=== PATIENT | male | born 1970 | race Caucasian/White ===

== ENCOUNTER → 2019-11-22 15:56 | Outpatient (BNVA) | payer MEDICAID, SELFPAY | PROVIDERS: Visit Provider Family Medicine | DX: E11.9 Type 2 diabetes mellitus without complications (principal); R32 Unspecified urinary incontinence; N48.1 Balanitis; F41.9 Anxiety disorder, unspecified; F10.10 Alcohol abuse, uncomplicated; F31.9 Bipolar disorder, unspecified; Z86.39 Personal history of other endocrine, nutritional and metabolic disease | CPT/HCPCS: 80053; 83036; 85025 ==

== ENCOUNTER 2020-01-21 22:19 | Emergency (ER) | payer MEDICAID, SELFPAY ==
[2020-01-21 22:22] VITALS: BMI 19.1
[2020-01-21 22:24] VITALS: BP 134/93; PULSE 100; RESP 22; TEMP 36.3; O2SAT 96
[2020-01-21 22:34] VITALS: PULSE 96
--- NOTE | 2020-01-21 22:35 | PC.NURSE ---
patient stated he was drinking tonight and was playing a game of stab through the fingers and lost . patient stabbed his finger with the knife. patient has lacerations to the fingers of the left hand, the 3rd, 4th, and 5th digits. patient states he doesn't need medical attention and only came because the police officers brought him.
--- NOTE | 2020-01-21 22:38 | ED_ITS ---
HPI - Extremity Problem General: Chief complaint: Extremity Injury, Upper Stated complaint: ETOH/HAND INJURY Time Seen by Provider: 01/21/20 22:21 Source: patient and EMS Mode of arrival: EMS Limitations: no limitations History of Present Illness: HPI Narrative: 49-year-old male who is been drinking alcohol tonight and is an alcoholic states he was playing the game where he stabbed a knife in between your fingers while holding her hand flat. He stabbed his left ring finger and has a small 1 cm laceration to that finger. Patient denies any other injuries. He has no suicidality or homicidality. He is unsure when his last tetanus was Associated symptoms: Deny chest pain, fever(s) or rash Review of Systems Const: Denies: fever, chills, body aches or change in appetite Eyes: Denies: blurry vision or eye discomfort ENMT: Denies: throat pain or dental pain Card: Denies: chest pain Resp: Denies: shortness of breath GI: Denies: abdominal pain, nausea, vomiting or diarrhea : Denies: painful urination Musc: Denies: neck pain or back pain Skin/Breast: Denies: rash Neuro: Denies: headache Psych: Denies: depression Abhinav/Lymph: Denies: easy bruising All/Imm: Denies: hives PFSH ED PFSH: Medical History Alcohol abuse Anxiety Bipolar 1 disorder History of diabetes mellitus, type II Social History Smoking and tobacco status: current every day smoker Alcohol intake: current Physical Exam 2 Const: COMMON NORMALS: no apparent distress, oriented x3 and healthy appearing OTHER: intoxicated HENMT: COMMON NORMALS: normocephalic and head/scalp atraumatic HEAD & SCALP: normocephalic and atraumatic Eye: COMMON NORMALS: PERRL and EOMs intact bilaterally PUPIL: Yes PERRL Neck/C-Spine: COMMON NORMALS: full ROM and supple Chest: COMMONS NORMALS: inspection of chest normal and palpation of chest norm al Resp: COMMON NORMALS: normal respiratory effort, no retractions, no use of accessory muscles and clear to auscultation bilaterally AUSCULTATION: clear to auscultation bilaterally Cardio: COMMON NORMALS: regular rate, regular rhythm and no murmurs RATE: regular rate RHYTHM: regular rhythm GI: COMMON NORMALS: normal to inspection, nondistended, normoactive bowel sounds, soft to palpation, non-tender and no masses PALPATION: Yes soft Extremity: COMMON NORMALS: normal to inspection and full ROM Neuro: COMMON NORMALS: oriented x3, moves all extremities and no focal motor deficits Psych: COMMON NORMALS: mental status grossly normal, thought process normal and cooperative THOUGHT PROCESS: normal thought process Skin: COMMON NORMALS: no rashes or lesions noted NARRATIVE SKIN EXAM: 1 cm superficial lesion to left ring finger with no tendon involvement GENERAL SKIN EXAM: no rashes or lesions noted Course Vital Signs: Vital signs: Vital Signs Temperature 97.4 F L 01/21/20 22:24 Pulse Rate 102 H 01/21/20 23:32 Respiratory Rate 18 01/21/20 23:32 Blood Pressure 106/69 01/21/20 23:32 Pulse Oximetry 97 01/21/20 23:32 MDM - Extremity (Nontraumatic) MDM Narrative: Medical decision making narrative: Patient presents with laceration to his finger. He refused any treatment and refused sutures or glue. Laceration was minimal. Patient is stable for discharge and is to follow-up with primary care doctor in 3 to 5 days and return if worsening. Discharge Plan Discharge Patient Disposition: Home, Self-Care Clinical Impression: Alcohol intoxication Qualifiers: Complication of substance-induced condition: uncomplicated Qualified Code(s): F10.920 - Alcohol use, unspecified with intoxication, uncomplicated Finger laceration Qualifiers: Encounter type: initial encounter Finger: ring finger Damage to nail status: without damage Foreign body presence: without foreign body Laterality: left Qualified Code(s): S61.215A - Laceration without foreign body of left ring finger without damage to nail, initial encounter Condition: Stable Prescriptions: No Action folic acid 1 mg tablet 1 mg PO DAILY RF: 0 acetaminophen 500 mg tablet 500 mg PO Q6H PRNRF: 0 gabapentin 300 mg capsule 800 mg PO TID RF: 0 insulin aspart U-100 [Novolog U-100 Insulin aspart] 100 unit/mL solution 15 unit SUBCUT TID Qty: 10 RF: 0 Lantus U-100 Insulin 100 unit/mL solution 100 unit SUBCUT DAILY Qty: 10 RF: 0 quetiapine 300 mg tablet 300 mg PO DAILY Qty: 30 RF: 1 thiamine HCl (vitamin B1) 100 mg tablet 100 mg PO DAILY Qty: 30 RF: 1 Discharge Orders: Discharge Order (Routine); Ordered 01/21/20 Ordered By: Fletcher Blanco Discharge Diet: Advance as tolerated Discharge Activity: Resume usual activity Patient Instructions: Laceration (ED), Abuse of Alcohol (ED) Discharge Date/Time: 01/21/20 23:25 Coding Level of Care Code ED Beam Dyer Recessed Vat for Sriram Fwd Exam Comprehensive
[2020-01-21] MEDS: tetanus-dipt-pertussis 0.5 mL SDV IM (23:25)
[2020-01-21 23:32] VITALS: BP 106/69; PULSE 102; RESP 18; O2SAT 97
== END 2020-01-21 23:25 | disposition home or self-care (01) ==
PROVIDERS: Emergency Provider Emergency Medicine
DX: S61.215A Laceration without foreign body of left ring finger without damage to nail, initial encounter (principal); F10.120 Alcohol abuse with intoxication, uncomplicated; Z79.4 Long term (current) use of insulin; E11.9 Type 2 diabetes mellitus without complications; F17.210 Nicotine dependence, cigarettes, uncomplicated; W26.0XXA Contact with knife, initial encounter; Z23 Encounter for immunization
CPT/HCPCS: 12345; 90471; 90715; 99281; 99283

== ENCOUNTER 2020-02-09 15:24 | Emergency (ER) | payer MEDICAID, SELFPAY ==
[2020-02-09 15:27] VITALS: BP 143/94; PULSE 81; RESP 16; TEMP 36.4; O2SAT 95; BMI 26.6
--- NOTE | 2020-02-09 15:42 | W.ED.PSYCH ---
HPI - Psych General: Chief Complaint: Psychiatric Symptoms Stated Complaint: ETOH; SI Time Seen by Provider: 02/09/20 15:26 Source: patient and EMS Mode of arrival: EMS Limitations: no limitations History of Present Illness: HPI Narrative: Patient is a 49-year-old male who is well-known to the ER he was very intoxicated and family called police because he stated that he wanted to kill himself. Patient denies any suicidality currently. He denies any suicidality to EMS. Patient states that he is just been drinking and does not like himself. Associated symptoms: Reports depression Review of Systems Const: Denies: fever(s), chills, body aches or change in appetite Eyes: Denies: blurry vision or eye discomfort ENMT: Denies: throat pain or dental pain Card: Denies: chest pain Resp: Denies: dyspnea GI: Denies: abdominal pain, nausea, vomiting or diarrhea : Denies: dysuria Musc: Denies: neck pain or back pain Skin/Breast: Denies: rash Neuro: Denies: headache(s) Psych: Reports: depression Abhinav/Lymph: Denies: easy bruising All/Imm: Denies: urticaria PFSH ED PFSH: Medical History (Updated 01/29/20 @ 00:00 by ) Alcohol abuse Anxiety Bipolar 1 disorder History of diabetes mellitus, type II Social History Smoking and tobacco status: current every day smoker Alcohol intake: current Physical Exam Const: COMMON NORMALS: no acute distress, patient oriented x3 and healthy appearing HENMT: COMMON NORMALS: normocephalic and atraumatic HEAD & SCALP: normocephalic and atraumatic Eye: COMMON NORMALS: Equal, round and reactive pupils present and EOMs intact bilaterally PUPIL: Yes Equal, round and reactive pupils present Neck/C-Spine: COMMON NORMALS: full ROM and supple Chest: COMMONS NORMALS: normal inspection of the chest and normal palpation of entire chest wall Resp: COMMON NORMALS: normal respiratory effort, No retractions, No use of accessory muscles and clear to auscultation bilaterally AUSCULTATION: clear to auscultation bilaterally Cardio: COMMON NORMALS: regular rate, regular rhythm and No murmurs present (Cardio) RATE: regular rate RHYTHM: regular rhythm GI: COMMON NORMALS: Normal to inspection, nondistended, normoactive bowel sounds present, Soft to palpation, non-tender and no masses PALPATION: Yes Soft to palpation Extremity: COMMON NORMALS: normal to inspection and full ROM Neuro: COMMON NORMALS: patient oriented x3, moves all extremities and no focal motor deficits Psych: COMMON NORMALS: mental status grossly normal, Normal thought process present and cooperative THOUGHT PROCESS: Normal thought process present OTHER: Very intoxicated Skin: COMMON NORMALS: no rashes or lesions noted and no wounds GENERAL SKIN EXAM: no rashes or lesions noted MDM - Psych MDM Narrative: Medical decision making narrative: Patient presents here with alcohol intoxication. There was concerns of suicidality patient was seen by Dr. Barrow patient is not suicidal or homicidal and Dr. Barrow feels that he does not need inpatient admission. Patient is now awake and alert and able to ambulate. Patient is stable for discharge and is to return if worsening. Lab Data: Labs: Lab Results 02/09/20 02/09/20 02/09/20 Range/Units 15:37 15:55 17:46 WBC 6.1 (4.0-10.0) 10^3/ uL RBC 4.72 (4.1-5.3) 10^6/u L Hgb 14.8 (11.7-16.6) g/dL Hct 46.2 (42.0-52.0) % MCV 97.9 H (80-94) fL MCH 31.4 (28.0-34.0) pg MCHC 32.0 (30.0-36.0) g/dL RDW 12.4 (12.1-15.1) % Plt Count 333 (130-400) 10^3/c mm MPV 9.5 (7.4-10.4) fL Neut % (Auto) 43.4 % Lymph % (Auto) 45.1 % Hinds % (Auto) 6.9 % Eos % (Auto) 2.1 % Baso % (Auto) 2.0 % Neut # (Auto) 2.6 (1.8-7.7) 10^3/u L Lymph # (Auto) 2.7 (0.8-4.8) 10^3/u L Hinds # (Auto) 0.4 (0.2-0.9) 10^3/u L Eos # (Auto) 0.1 (0.0-0.8) 10^3/u L Baso # (Auto) 0.1 (0.0-0.1) 10^3/u L Nucleated RBC % (a uto) 0 % Nucleated RBCs # 0.0 /100WBC Sodium 140 (136-145) mmol/L Potassium 4.3 (3.5-5.1) mmol/L Chloride 97 L (98-107) mmol/L Carbon Dioxide 21 L (22-29) mmol/L Anion Gap 26.3 H (5-19) BUN 8 (6-20) mg/dL Creatinine 0.6 L (0.7-1.2) mg/dL GFR Calculation 142.6 H (90-130) mL/min Glucose 293 H (65-115) mg/dL Calculated Osmolal ity 297 H (285-295) mOsm/k g Calcium 9.0 (8.5-10.5) mg/dL Total Bilirubin 0.2 (0.15-1.2) mg/dL AST 28 (0-40) U/L ALT 21 (0-41) U/L Alkaline Phosphata se 108 (40-130) IU/L Total Protein 7.9 (6.6-8.7) g/dL Albumin 4.4 (3.5-5.2) g/dL Globulin 3.5 (1.3-4.6) g/dL Salicylates < 0.3 L (3-10) mg/dL Urine Opiates Scre en Negative (Negative) ng/mL Acetaminophen < 5.0 L (10-30) ug/mL Ur Barbiturates Sc reen Negative (Negative) ng/mL Ur Phencyclidine S crn Negative (Negative) ng/mL Ur Amphetamines Sc reen Negative (Negative) ng/mL U Benzodiazepines Scrn Negative (Negative) ng/mL Urine Cocaine Scre en Negative (Negative) ng/mL U Marijuana (THC) Screen Negative (Negative) ng/mL Ethyl Alcohol 429 H* (0-10) mg/dL Discharge Plan Discharge Patient Disposition: Home, Self-Care Clinical Impression: Alcohol abuse Condition: Stable Prescriptions: No Action folic acid 1 mg tablet 1 mg PO DAILY RF: 0 acetaminophen 500 mg tablet 500 mg PO Q6H PRN (Reason: Pain) RF: 0 Lantus U-100 Insulin 100 unit/mL solution 100 unit SUBCUT DAILY 30 Days Qty: 10 RF: 1 insulin aspart U-100 [Novolog U-100 Insulin aspart] 100 unit/mL solution 15 unit SUBCUT TID 30 Days Qty: 13.5 RF: 1 quetiapine 300 mg tablet 300 mg PO DAILY Qty: 30 RF: 1 thiamine HCl (vitamin B1) 100 mg tablet 100 mg PO DAILY Qty: 30 RF: 1 gabapentin 300 mg capsule 600 mg PO TID 30 Days Qty: 90 RF: 1 Discharge Orders: Discharge Order (Routine); Ordered 02/09/20 Ordered By: Fletcher Blanco Discharge Diet: Advance as tolerated Discharge Activity: Resume usual activity Patient Instructions: Abuse of Alcohol (ED) Coding Level of Care Code ED Master Control Operator for Sriram Fwd Exam Comprehensive
[2020-02-09 15:43] LABS: Basophils # 0.1 10^3/uL (0.0-0.1); Eosinophils # 0.1 10^3/uL (0.0-0.8); Eosinophils % 2.1 %; Hematocrit 46.2 % (42.0-52.0); Hemoglobin 14.8 g/dL (11.7-16.6); Lymphocytes # 2.7 10^3/uL (0.8-4.8); Lymphocytes % 45.1 %; Mean Corpuscular Hemoglobin 31.4 pg (28.0-34.0); Mean Corpuscular Volume 97.9 fL (80-94); Mean Platelet Volume 9.5 fL (7.4-10.4); Monocytes # 0.4 10^3/uL (0.2-0.9); Monocytes % 6.9 %; Neutrophils # 2.6 10^3/uL (1.8-7.7); Neutrophils % 43.4 %; Nucleated Red Blood Cells % 0 %; Platelet Count 333 10^3/cmm (130-400); Red Blood Count 4.72 10^6/uL (4.1-5.3); Red Cell Distribution Width 12.4 % (12.1-15.1); White Blood Count 6.1 10^3/uL (4.0-10.0)
[2020-02-09 16:17] LABS: Alanine Aminotransferase 21 U/L (0-41); Albumin Level 4.4 g/dL (3.5-5.2); Alkaline Phosphatase 108 IU/L (40-130); Anion Gap 26.3 (5-19); Aspartate Amino Transferase 28 U/L (0-40); Blood Urea Nitrogen 8 mg/dL (6-20); Carbon Dioxide 21 mmol/L (22-29); Chloride 97 mmol/L (98-107); Globulin 3.5 g/dL (1.3-4.6); Glomerular Filtration Rate 142.6 mL/min (90-130); Glucose 293 mg/dL (65-115); Osmolality Calculated 297 mOsm/kg (285-295); Potassium 4.3 mmol/L (3.5-5.1); Sodium 140 mmol/L (136-145); Total Bilirubin 0.2 mg/dL (0.15-1.2); Total Protein 7.9 g/dL (6.6-8.7)
[2020-02-09 16:26] LABS: Acetaminophen < 5.0 ug/mL (10-30); Salicylate < 0.3 mg/dL (3-10)
[2020-02-09 16:27] LABS: Alcohol Level 429 mg/dL (0-10)
[2020-02-09 18:20] LABS: Amphetamines Screen Urine Negative (Negative); Barbiturates Screen Urine Negative (Negative); Benzodiazepines Screen Urine Negative (Negative); Cocaine Screen Urine Negative (Negative); Opiate Screen Urine Negative (Negative); PCP Screen Urine Negative (Negative); THC Screen Urine Negative (Negative)
[2020-02-09 18:49] VITALS: BP 130/77; PULSE 89; RESP 16; O2SAT 98
== END 2020-02-09 18:49 | disposition home or self-care (01) ==
PROVIDERS: Emergency Provider Emergency Medicine
DX: F10.10 Alcohol abuse, uncomplicated (principal); Y90.8 Blood alcohol level of 240 mg/100 ml or more; Z79.4 Long term (current) use of insulin; E11.9 Type 2 diabetes mellitus without complications; F17.210 Nicotine dependence, cigarettes, uncomplicated
CPT/HCPCS: 12345; 36415; 80053; 80306; 80307; 85025; 99284

== ENCOUNTER 2021-01-07 09:14 | Emergency (ER) | payer MEDICAID, SELFPAY ==
[2021-01-07 09:15] VITALS: BP 136/81; PULSE 104; RESP 18; TEMP 36.8; O2SAT 97; BMI 38.9
--- NOTE | 2021-01-07 09:39 | ED_ITS ---
HPI - Wound/Laceration General: Chief Complaint: Wound/Laceration Stated Complaint: left foot wound Time Seen by Provider: 01/07/21 09:37 History of Present Illness: HPI narrative: Patient is a 50-year-old male comes to the ED with a wound on left foot. Patient has a past medical history of diabetes type 2. Patient says he has a wound on the heel of his left foot and left great toe. He reports that he saw the [facility] approximately 2 weeks ago and they told him to put Vaseline on his wounds. Wound started approximately 3 to 4 weeks ago. He says since he saw [facility] they've gotten worse over the past 2 weeks. He says his wound on his heel is the most painful especially when weightbearing. He says he doesn't really feel the wound on his great toe. He reports that they bleed daily. Patient does have a history of MRSA approximately 5 years ago. Denies any fever, chills, nausea/vomiting or any other symptoms. Associated symptoms: Denies chills, fever(s), nausea or vomiting Review of Systems Const: Denies: fever(s), chills or fatigue Eyes: Denies: change in vision or eye discomfort ENMT: Denies: throat pain, odynophagia, nasal discharge or nasal congestion Card: Denies: chest pain, palpitations, edema, swelling of feet/ankles, dyspnea on exertion or orthopnea Resp: Denies: dyspnea, productive cough or non-productive cough GI: Denies: abdominal pain, nausea, vomiting, diarrhea, constipation or hematochezia : Denies: flank pain, difficulty urinating, dysuria or hematuria Musc: Denies: neck pain, back pain or extremity swelling Skin/Breast: Reports: new lesions (Wound on left foot heel and left great toe .); Denies: rash Neuro: Denies: headache(s), numbness in extremities or weakness in extremities PFSH ED PFSH: Medical History Alcohol abuse Anxiety Bipolar 1 disorder History of diabetes mellitus, type II Social History Smoking and tobacco status: current every day smoker Alcohol intake: current Physical Exam Const: COMMON NORMALS: no acute distress, patient oriented x3 and alert GENERAL APPEARANCE: cooperative and comfortable HENMT: COMMON NORMALS: normocephalic HEAD & SCALP: normocephalic MOUTH: Normal oral and palatal mucosa present THROAT: posterior oropharynx normal and uvula midline Neck/C-Spine: COMMON NORMALS: supple GENERAL: Yes normal visual inspection Resp: COMMON NORMALS: normal respiratory effort, No retractions, No use of accessory muscles and clear to auscultation bilaterally AUSCULTATION: clear to auscultation bilaterally Cardio: COMMON NORMALS: regular rate, regular rhythm, S1 normal heart sound present, S2 normal heart sound present, No gallops present (Cardio), No clicks present (Cardio), No murmurs present (Cardio) and Peripheral pulses 2+ throughout RATE: regular rate RHYTHM: regular rhythm HEART SOUNDS: S1 normal heart sound present and S2 normal heart sound present PERIPHERAL PULSES: Peripheral pulses 2+ throughout GI: COMMON NORMALS: Normal to inspection, nondistended, normoactive bowel sounds present, Soft to palpation, non-tender and no masses PALPATION: Yes Soft to palpation : COMMON NORMALS: Yes no CVA tenderness BLADDER/KIDNEY EXAM: Yes no CVA tenderness Back/Pelvis: COMMON NORMALS: no CVA tenderness Extremity: NARRATIVE EXTREMITY EXAM: Patient has a pressure ulcer on distal aspect of left great toe and there is some necrotic appearing superficial skin tissue. Toe has erythema and warmth which is suggestive of some cellulitis setting in. Patient also has a pressure ulcer on the heel. No surrounding erythema or warmth and no purulent drainage seen. GENERAL: Yes normal exam except as noted Neuro: COMMON NORMALS: patient oriented x3 and moves all extremities SENSORIUM/ORIENTATION: Yes alert Skin: NARRATIVE SKIN EXAM: Diabetic right foot ulcers described in Extremity section of exam. GENERAL SKIN EXAM: dry skin Course Vital Signs: Vital signs: Vital Signs Temperature 98.2 F 01/07/21 09:15 Pulse Rate 78 01/07/21 10:25 Respiratory Rate 18 01/07/21 10:25 Blood Pressure 153/88 01/07/21 12:19 Pulse Oximetry 99 01/07/21 12:19 MDM - Wound/Laceration MDM Narrative: Medical decision making narrative: Patient is a 50-year-old male comes to the ED with right foot diabetic ulcers. Patient has 1 ulcer on the distal aspect of great toe and the other ulcers on the heel. Past medical history of diabetes and MRSA. CBC and CMP were unremarkable. ESR 31 and CRP 3.6. X-ray of right foot shows no signs of bone destruction and just noted of soft tissue edema and ulceration of the great toe. Patient was given IV fluids and vancomycin while here in the ED. I placed an order with case management for patient to be referred to wound care clinic to manage ulcers. Patient was diagnosed with diabetic ulcer left great toe with cellulitis developing as well. Patient was discharged home with a prescription for clindamycin. Return to ED precautions given. I told patient that case sealer will contact him in the next several days to set up an appointment with wound care clinic. Patient understood and agreed with plan. Lab Data: Attestation: I reviewed the patient's lab results. Labs: Lab Results 01/07/21 01/07/21 01/07/21 Range/Units 11:00 11:00 11:00 WBC 9.3 (4.0-10.0) 10^3/ uL RBC 4.14 (4.1-5.3) 10^6/u L Hgb 13.5 (11.7-16.6) g/dL Hct 41.7 L (42.0-52.0) % MCV 100.7 H (80-94) fL MCH 32.6 (28.0-34.0) pg MCHC 32.4 (30.0-36.0) g/dL RDW 12.9 (12.1-15.1) % Plt Count 291 (130-400) 10^3/c mm MPV 8.9 (7.4-10.4) fL Neut % (Auto) 60.7 % Lymph % (Auto) 24.2 % Stokes % (Auto) 8.9 % Eos % (Auto) 4.3 % Baso % (Auto) 1.0 % Neut # (Auto) 5.67 (1.8-7.7) 10^3/u L Lymph # (Auto) 2.3 (0.8-4.8) 10^3/u L Stokes # (Auto) 0.8 (0.2-0.9) 10^3/u L Eos # (Auto) 0.4 (0.0-0.8) 10^3/u L Baso # (Auto) 0.1 (0.0-0.1) 10^3/u L Nucleated RBC % (a uto) 0 % Nucleated RBCs # 0.0 /100WBC ESR 31 H (0-10) mm/hr Sodium 139 (136-145) mmol/L Potassium 3.6 (3.5-5.1) mmol/L Chloride 101 (98-107) mmol/L Carbon Dioxide 29 (22-29) mmol/L Anion Gap 12.6 (5-19) BUN 6 (6-20) mg/dL Creatinine 0.5 L (0.7-1.2) mg/dL GFR Calculation 175.3 H (90-130) mL/min Glucose 108 (65-115) mg/dL Calculated Osmolal ity 286 (285-295) mOsm/k g Calcium 8.0 L (8.5-10.5) mg/dL Total Bilirubin 0.2 (0.15-1.2) mg/dL AST 17 (0-40) U/L ALT 12 (0-41) U/L Alkaline Phosphata se 87 (40-130) IU/L C-Reactive Protein 3.6 (0.0-4.9) mg/L Total Protein 6.9 (6.6-8.7) g/dL Albumin 3.4 L (3.5-5.2) g/dL Globulin 3.5 (1.3-4.6) g/dL Imaging Data^: Xray Ortho: Attestation: I personally reviewed and interpreted this imaging study as follows: Radiologist's impression: [address] [address] XRay Report Signed Patient: Huan Kauffman Unit #: [id number] : 1970 Age/Sex: 50 / M ADM Date: 01/07/21 Loc: ER Room/Bed: Attending Dr: Ordering Provider/Ordering MD: Cain Rhodes Date of Service: 01/07/21 Procedure(s): XR foot LT min 3V* [id number] Accession Number(s): [id number] Report Number: [id number] WS: [id number] Exam: XR foot LT min 3V* [id number] Date/Time of Exam: 01/07/2021 9:53 AM Reason For Exam: ulcer on great toe No acute fracture or dislocation. No bone destruction noted. Soft tissue edema and ulceration of the great toe. No soft tissue gas noted. XR/XR foot LT min 3V* [id number] IMPRESSION: 1. Soft tissue edema and ulceration of the great toe. 2. No sign of fracture or bone destruction. Dictated By: Ron Izquierdo DO Signed By: Ron Izquierdo DO Signed Date/Time: 01/07/21 1031 DD/ 1030 Discharge Plan Discharge Patient Disposition: Home Clinical Impression: Diabetic ulcer of left great toe Cellulitis Qualifiers: Site of cellulitis: extremity Site of cellulitis of extremity: toe Laterality: left Qualified Code(s): L03.032 - Cellulitis of left toe Condition: Stable Prescriptions: New clindamycin HCl 150 mg capsule 300 mg PO QID 10 Days Qty: 80 RF: 0 No Action folic acid 1 mg tablet 1 mg PO DAILY RF: 0 acetaminophen 500 mg tablet 500 mg PO Q6H PRN (Reason: Pain) RF: 0 Lantus U-100 Insulin 100 unit/mL solution 100 unit SUBCUT DAILY 30 Days Qty: 10 RF: 1 insulin aspart U-100 [Novolog U-100 Insulin aspart] 100 unit/mL solution 15 unit SUBCUT TID 30 Days Qty: 13.5 RF: 1 quetiapine 300 mg tablet 300 mg PO DAILY Qty: 30 RF: 1 thiamine HCl (vitamin B1) 100 mg tablet 100 mg PO DAILY Qty: 30 RF: 1 gabapentin 300 mg capsule 600 mg PO TID 30 Days Qty: 90 RF: 1 Discharge Orders: Discharge ED (Routine); Ordered 01/07/21 Ordered By: Cain Rhodes Discharge Diet: Regular Discharge Activity: Increase activity as tolerated Patient Instructions: Cellulitis (ED), Diabetic Foot Ulcers (ED) Activity Restrictions/Additional Instructions: Follow-up with medical provider as directed. Case management will be contacting you in the next several days to set up an appointment with wound care clinic. Take medications as prescribed. Make sure to follow-up with wound care as instructed. Return to the ER or your medical provider if condition worsens. Please read and understand discharge instructions. If any questions, please ask. Coding Level of Care Code ED Rigging Loft Repairer for Sriram Fwd Exam Comprehensive
--- NOTE | 2021-01-07 09:49 | XR_ITS ---
WS: [id number] Exam: XR foot LT min 3V* [id number] Date/Time of Exam: 01/07/2021 9:53 AM Reason For Exam: ulcer on great toe No acute fracture or dislocation. No bone destruction noted. Soft tissue edema and ulceration of the great toe. No soft tissue gas noted. XR/XR foot LT min 3V* [id number] IMPRESSION: 1. Soft tissue edema and ulceration of the great toe. 2. No sign of fracture or bone destruction.
[2021-01-07] MEDS: sodium chloride 0.9% 500 ML IV (10:22)
[2021-01-07] MEDS: vancomycin 1,500 MG/300 ML PIGGYBACK 200 MG IV (10:22)
[2021-01-07 10:25] VITALS: BP 156/98; PULSE 78; RESP 18; O2SAT 98
[2021-01-07 11:21] LABS: Basophils # 0.1 10^3/uL (0.0-0.1); Eosinophils # 0.4 10^3/uL (0.0-0.8); Eosinophils % 4.3 %; Hematocrit 41.7 % (42.0-52.0); Hemoglobin 13.5 g/dL (11.7-16.6); Lymphocytes # 2.3 10^3/uL (0.8-4.8); Lymphocytes % 24.2 %; Mean Corpuscular HGB Conc 32.4 g/dL (30.0-36.0); Mean Corpuscular Hemoglobin 32.6 pg (28.0-34.0); Mean Corpuscular Volume 100.7 fL (80-94); Mean Platelet Volume 8.9 fL (7.4-10.4); Monocytes # 0.8 10^3/uL (0.2-0.9); Monocytes % 8.9 %; Neutrophils # 5.67 10^3/uL (1.8-7.7); Neutrophils % 60.7 %; Nucleated Red Blood Cells % 0 %; Platelet Count 291 10^3/cmm (130-400); Red Blood Count 4.14 10^6/uL (4.1-5.3); Red Cell Distribution Width 12.9 % (12.1-15.1); White Blood Count 9.3 10^3/uL (4.0-10.0)
[2021-01-07 11:40] LABS: Alanine Aminotransferase 12 U/L (0-41); Albumin Level 3.4 g/dL (3.5-5.2); Alkaline Phosphatase 87 IU/L (40-130); Anion Gap 12.6 (5-19); Aspartate Amino Transferase 17 U/L (0-40); Blood Urea Nitrogen 6 mg/dL (6-20); C Reactive Protein 3.6 mg/L (0.0-4.9); Carbon Dioxide 29 mmol/L (22-29); Chloride 101 mmol/L (98-107); Globulin 3.5 g/dL (1.3-4.6); Glomerular Filtration Rate 175.3 mL/min (90-130); Glucose 108 mg/dL (65-115); Osmolality Calculated 286 mOsm/kg (285-295); Potassium 3.6 mmol/L (3.5-5.1); Sodium 139 mmol/L (136-145); Total Bilirubin 0.2 mg/dL (0.15-1.2); Total Protein 6.9 g/dL (6.6-8.7)
[2021-01-07 12:00] VITALS: BP 153/88; O2SAT 99
[2021-01-07 12:19] VITALS: BP 153/88; O2SAT 99
[2021-01-07 12:31] LABS: Erythrocyte Sedimentation Rate 31 mm/hr (0-10)
--- NOTE | 2021-01-11 13:45 | DCPLANNER ---
Addendum entered by Shweta Garnett 01/12/21 10:03: event operations manager called and spoke with patient, gave patient follow up appointment information. Addendum entered by Shweta Garnett 01/11/21 13:59: Patients niece called medical case worker back, stated that patient does not live with her. She did give medical case worker a new number to try and reach patient on, , medical case worker called this number unable to speak with anyone at this time, a voicemail was left for patient to return case picker phone call. Original Note: event operations manager had message to schedule a follow up appointment with Wound Care. event operations manager called the Wound Care clinic, spoke with Britta, gave clinic patients information. A follow up appointment was scheduled for , January 14, 2021 a 8:30 with Lucinda. event operations manager called phone number [phone], was cussed at and stated that they wished we would not call that number, no one by that name lived there and then was hung up on. event operations manager had that number taken out of patients chart. event operations manager then called [phone], unable to speak with anyone at this time a voicemail was left for patient to return case picker phone call.
--- NOTE | 2021-03-29 08:17 | DCPLANNER ---
Patient had a follow up appointment scheduled with Wound Care - patient did attend appointment.
== END 2021-01-07 12:20 | disposition home or self-care (01) ==
PROVIDERS: Emergency Provider Physician Assistant
DX: E11.621 Type 2 diabetes mellitus with foot ulcer (principal); L97.529 Non-pressure chronic ulcer of other part of left foot with unspecified severity; L03.032 Cellulitis of left toe; Z79.4 Long term (current) use of insulin; F17.210 Nicotine dependence, cigarettes, uncomplicated
CPT/HCPCS: 36415; 73630; 80053; 85025; 85651; 86140; 87040; 96365; 99283; J3370; J7040

== ENCOUNTER 2021-01-21 09:52 | Outpatient (CLI) | payer MEDICAID, SELFPAY | END 2021-01-21 09:53 | disposition home or self-care (01) | LOC: WOUND 09:53 | PROVIDERS: Visit Provider Nurse Practitioner Family | DX: E11.621 Type 2 diabetes mellitus with foot ulcer (principal); L97.529 Non-pressure chronic ulcer of other part of left foot with unspecified severity; L97.519 Non-pressure chronic ulcer of other part of right foot with unspecified severity; L97.422 Non-pressure chronic ulcer of left heel and midfoot with fat layer exposed | CPT/HCPCS: 11042; G0463 ==

== ENCOUNTER 2021-01-29 09:30 | Outpatient (CLI) | payer MEDICAID, SELFPAY | END 2021-01-29 09:31 | disposition home or self-care (01) | LOC: WOUND 09:31 | PROVIDERS: Visit Provider Thoracic Surgery (Cardiothoracic Vascular Surgery) | DX: E11.621 Type 2 diabetes mellitus with foot ulcer (principal); L97.511 Non-pressure chronic ulcer of other part of right foot limited to breakdown of skin; L97.421 Non-pressure chronic ulcer of left heel and midfoot limited to breakdown of skin | CPT/HCPCS: 97597; 99212 ==

== ENCOUNTER 2021-02-18 09:08 | Outpatient (CLI) | payer MEDICAID, SELFPAY | END 2021-02-18 09:09 | disposition home or self-care (01) | LOC: WOUND 09:09 | PROVIDERS: Visit Provider Nurse Practitioner Family | DX: E11.621 Type 2 diabetes mellitus with foot ulcer (principal); L97.521 Non-pressure chronic ulcer of other part of left foot limited to breakdown of skin | CPT/HCPCS: 11042 ==

== ENCOUNTER 2021-02-25 08:59 | Outpatient (CLI) | payer MEDICAID, SELFPAY | END 2021-02-25 09:00 | disposition home or self-care (01) | LOC: WOUND 09:01 | PROVIDERS: Visit Provider Nurse Practitioner Family | DX: E11.621 Type 2 diabetes mellitus with foot ulcer (principal); L97.521 Non-pressure chronic ulcer of other part of left foot limited to breakdown of skin | CPT/HCPCS: 11042 ==

== ENCOUNTER 2021-03-13 22:17 | Emergency (ER) | payer MEDICAID, SELFPAY ==
[2021-03-13 22:38] VITALS: BP 126/82; PULSE 98; RESP 17; TEMP 36.4; O2SAT 99; BMI 34.9
--- NOTE | 2021-03-13 22:55 | CTR_ITS ---
PROCEDURE INFORMATION: Exam: CT Neck With Contrast Exam date and time: 03/13/2021 10:55 PM Age: 50 years old Clinical indication: Dysphagia / difficulty swallowing and dyspnea / difficulty breathing; Patient HX: C/O throat pain, difficulty swallowing and breathing; Additional info: SOB, stridor TECHNIQUE: Imaging protocol: Computed tomography images of the neck with contrast. Radiation optimization: All CT scans at this facility use at least one of these dose optimization techniques: automated exposure control; mA and/or kV adjustment per patient size (includes targeted exams where dose is matched to clinical indication); or iterative reconstruction. Contrast material: OMNI 300; Contrast volume: 95 ml; Contrast route: INTRAVENOUS (IV); COMPARISON: CR (CHEST, ) 03/13/2021 10:59 PM RADIATION DOSE METRICS: Total DLP (mGy-cm): 521.53 FINDINGS: Nasopharynx: Unremarkable. Oropharynx: Unremarkable. No significant tonsillar enlargement. Hypopharynx: Unremarkable. Larynx: Unremarkable. Normal epiglottis. Retropharyngeal space: Unremarkable. Submandibular/Parotid glands: Normal. Glands are normal in size. Thyroid: Normal. No enlarged or calcified nodules. Lymph nodes: There are visualized but nonenlarged bilateral cervical lymph nodes. Trachea: Visualized trachea is unremarkable. Lungs: Unremarkable as visualized. Bones/joints: Unremarkable. No acute fracture. Soft tissues: Unremarkable. No significant soft tissue swelling. Other findings: Airway is widely patent. CT/CT neck w con* [id number] IMPRESSION: 1. Airway is widely patent. 2. No cause for shortness of breath or dysphagia is identified. Radiation Dose CTDIVOL = (mGy): DLP = 521.53 (mGy-cm)
--- NOTE | 2021-03-13 22:55 | XRR_ITS ---
PROCEDURE INFORMATION: Exam: XR Chest Exam date and time: 03/13/2021 10:55 PM Age: 50 years old Clinical indication: Dyspnea; Additional info: SOB TECHNIQUE: Imaging protocol: XR of the chest. Views: 1 view. COMPARISON: CR Chest 1 [place] [id number] 01/01/2019 5:14 PM FINDINGS: Lungs: Unremarkable. No consolidation. Pleural spaces: Unremarkable. No pleural effusion. No pneumothorax. Heart/Mediastinum: Unremarkable. No cardiomegaly. Bones/joints: Unremarkable. XR/XR chest 1V portable [id number] IMPRESSION: No acute disease.
--- NOTE | 2021-03-13 22:57 | ECG_ITS ---
[facility] Test Date: 2021-03-13 Pat Name: Huan Kauffman Department: Room: Gender: Male Claims Support Specialist: : 1970 Requested By: Arnold Barlow Order Number: [id number] Reading MD: JULIA STUART Measurements Intervals [place] Rate: 94 P: 71 TX: 166 QRS: 76 QRSD: 92 T: 86 QT: 356 QTc: 445 Interpretive Statements SINUS RHYTHM Compared to ECG 01/01/2019 17:09:33 No significant changes Electronically Signed On 03-15-2021 18:51:04 CDT by JULIA STUART [id number]
[2021-03-13] MEDS: ondansetron 2 mg/ML SDV 2 mL 4 MG IVP (23:21)
[2021-03-13] MEDS: sodium chloride 0.9% 1,000 ML 999 ML IV (23:21)
[2021-03-13] MEDS: dexamethasone 4 mg/mL INJ 6 MG IVP (23:25)
[2021-03-13 23:26] VITALS: RESP 17; O2SAT 99
[2021-03-13] MEDS: morphine 4 mg/mL SDV 1 mL IVP (23:26)
[2021-03-13 23:34] LABS: Add Urine Microscopic? NO; Charge for UA Resulting for Rev
[2021-03-13] MEDS: iohexol 300 mg/mL 100 mL Btl IV (23:36)
--- NOTE | 2021-03-13 23:40 | W.ED.SOB ---
HPI - SOB/Dyspnea General: Chief Complaint: Shortness of Breath/Dyspnea Stated Complaint: SOB Time Seen by Provider: 03/13/21 22:35 History of Present Illness: HPI Narrative: 50-year-old male presents to the ER with multiple complaints. He states that his main complaint is that of throat pain and trouble swallowing with trouble breathing. This is been progressively worsening for months he says. He says that he drinks alcohol to self medicate, and has been vomiting because of his throat. He is coughing. He denies any fever. He appears to be intoxicated. MD elicited complaint: shortness of breath and cough Pertinent past history: diabetes and other Onset (ago): month(s) Context: elevated blood glucose Timing: progressively worsening Severity: moderate Exacerbating factors: exertion, coughing and inspiration Relieving factors: nothing Known history of: diabetes and other Associated symptoms: Reports dizziness, nausea and vomiting; Deny abdominal pain, chest pain, fever(s) or hemoptysis Treatment prior to arrival: none Review of Systems Const: Denies: fever(s) Card: Denies: chest pain Resp: Denies: hemoptysis GI: Reports: nausea and vomiting; Denies: abdominal pain Neuro: Reports: dizziness PFSH ED PFSH: Medical History (Updated 03/14/21 @ 02:08 by Arnold Maloney DO) Alcohol abuse Anxiety Bipolar 1 disorder History of diabetes mellitus, type II Social History Smoking and tobacco status: current every day smoker Alcohol intake: current Physical Exam Const: GENERAL APPEARANCE: disheveled, appears older than stated age and odor of alcohol detected ORIENTATION/CONSCIOUSNESS: Yes awake, Yes oriented to person and Yes oriented to place HENMT: COMMON NORMALS: normocephalic, atraumatic and Normal external nose present HEAD & SCALP: normocephalic and atraumatic FACE & SINUS: normal facial exam NOSE: Normal external nose present and Normal nares present MOUTH: Normal oral and palatal mucosa present and tongue normal THROAT: posterior oropharynx abnormal edema and erythema; uvula not laterally displaced Chest: COMMONS NORMALS: normal inspection of the chest Resp: COMMON NORMALS: normal respiratory effort, No use of accessory muscles and clear to auscultation bilaterally AUSCULTATION: clear to auscultation bilaterally and other (Minimal stridor on forced inspiration) Cardio: COMMON NORMALS: regular rate and regular rhythm RATE: regular rate RHYTHM: regular rhythm GI: COMMON NORMALS: Normal to inspection, nondistended, normoactive bowel sounds present and Soft to palpation PALPATION: Yes Soft to palpation Neuro: SENSORIUM/ORIENTATION: Yes oriented to person and Yes oriented to place Course Vital Signs: Vital signs: Vital Signs Temperature 97.6 F 03/13/21 22:38 Pulse Rate 71 03/14/21 04:00 Respiratory Rate 17 03/14/21 04:00 Blood Pressure 162/111 03/14/21 01:52 Pulse Oximetry 96 03/14/21 04:00 MDM - SOB/Dyspnea MDM Narrative: Medical decision making narrative: 50-year-old male with multiple complaints. His main complaint is that of throat pain. He is sure that he has throat cancer. His white blood cell count is mildly elevated at 12.8. His bicarbonate level is low. His alcohol level is elevated at 99. His sodium is low at 125, but this is pseudohyponatremia, as his blood sugar is nearly 400. He is not acidotic. CT soft tissue of the neck does not reveal any mass, or definite infection or abscess. There is inflammation of his posterior pharynx on exam. He will be treated for this. This could be related to alcohol. His chest x-ray is negative. Results were explained to him. Case management referral will be made for him a primary care physician Lab Data: Labs: Lab Results 03/13/21 03/13/21 03/13/21 Range/Units 23:20 23:20 23:20 WBC 12.8 H (4.0-10.0) 10^3/ uL RBC 5.08 (4.1-5.3) 10^6/u L Hgb 16.1 (11.7-16.6) g/dL Hct 45.8 (42.0-52.0) % MCV 90.2 (80-94) fL MCH 31.7 (28.0-34.0) pg MCHC 35.2 (30.0-36.0) g/dL RDW 11.1 L (12.1-15.1) % Plt Count 273 (130-400) 10^3/c mm MPV 10.7 H (7.4-10.4) fL Neut % (Auto) 65.7 % Lymph % (Auto) 23.0 % [facility] % (Auto) 8.8 % Eos % (Auto) 0.9 % Baso % (Auto) 0.7 % Neut # (Auto) 8.40 H (1.8-7.7) 10^3/u L Lymph # (Auto) 2.9 (0.8-4.8) 10^3/u L [facility] # (Auto) 1.1 H (0.2-0.9) 10^3/u L Eos # (Auto) 0.1 (0.0-0.8) 10^3/u L Baso # (Auto) 0.1 (0.0-0.1) 10^3/u L Nucleated RBC % (a uto) 0 % Nucleated RBCs # 0.0 /100WBC Specimen Type Sample Site ABG pH (7.35-7.45) ABG pCO2 (35-45) mmHg ABG pO2 (80.0-100.0) mmH g ABG HCO3 (22-26) mmol/L ABG Base Excess (-2.0-2.0) mmol/ L Fortino Test Hematocrit (42-52) % O2 Delivery Device O2 Liters/Min % Spring Layer ID Sodium 125 L (136-145) mmol/L Potassium 4.3 (3.5-5.1) mmol/L Chloride 90 L (98-107) mmol/L Carbon Dioxide 17 L (22-29) mmol/L Anion Gap 22.3 H (5-19) BUN 3 L (6-20) mg/dL Creatinine 0.6 L (0.7-1.2) mg/dL GFR Calculation 142.0 H (90-130) mL/min Glucose 398 H (65-115) mg/dL Calculated Osmolal ity 273 L (285-295) mOsm/k g Lactate 1.9 (0.5-2.2) mmol/L Calcium 9.2 (8.5-10.5) mg/dL Total Bilirubin 0.7 (0.15-1.2) mg/dL AST 23 (0-40) U/L ALT 23 (0-41) U/L Alkaline Phosphata se 79 (40-130) IU/L C-Reactive Protein 5.5 H (0.0-4.9) mg/L Total Protein 7.8 (6.6-8.7) g/dL Albumin 4.0 (3.5-5.2) g/dL Globulin 3.8 (1.3-4.6) g/dL Procalcitonin 0.09 (0-0.5) ng/mL Urine Color (Yellow) Urine Appearance (CLEAR) Urine pH (5-7) Ur Specific Gravit y (1.005-1.030) Urine Protein (Negative) Urine Glucose (UA) (Normal) Urine Ketones (Negative) Urine Blood (Negative) Urine Nitrate (Negative) Urine Bilirubin (Negative) Urine Urobilinogen (Negative) mg/dL Ur Leukocyte Maureen ase (Negative) Ethyl Alcohol 99 H (0-10) mg/dL 03/13/21 03/14/21 Range/Units 23:20 02:30 WBC (4.0-10.0) 10^3/ uL RBC (4.1-5.3) 10^6/u L Hgb (11.7-16.6) g/dL Hct (42.0-52.0) % MCV (80-94) fL MCH (28.0-34.0) pg MCHC (30.0-36.0) g/dL RDW (12.1-15.1) % Plt Count (130-400) 10^3/c mm MPV (7.4-10.4) fL Neut % (Auto) % Lymph % (Auto) % [facility] % (Auto) % Eos % (Auto) % Baso % (Auto) % Neut # (Auto) (1.8-7.7) 10^3/u L Lymph # (Auto) (0.8-4.8) 10^3/u L [facility] [place] # (Auto) (0.2-0.9) 10^3/u L Eos # (Auto) (0.0-0.8) 10^3/u L Baso # (Auto) (0.0-0.1) 10^3/u L Nucleated RBC % (a uto) % Nucleated RBCs # /100WBC Specimen Type Arterial Sample Site Radial, left ABG pH 7.43 (7.35-7.45) ABG pCO2 34.5 L (35-45) mmHg ABG pO2 86.9 (80.0-100.0) mmH g ABG HCO3 23.0 (22-26) mmol/L ABG Base Excess -0.6 (-2.0-2.0) mmol/ L Fortino Test Pos Hematocrit 50.6 (42-52) % O2 Delivery Device Nc O2 Liters/Min 1.0 % Spring Layer ID [email or web address] Sodium (136-145) mmol/L Potassium (3.5-5.1) mmol/L Chloride (98-107) mmol/L Carbon Dioxide (22-29) mmol/L Anion Gap (5-19) BUN (6-20) mg/dL Creatinine (0.7-1.2) mg/dL GFR Calculation (90-130) mL/min Glucose (65-115) mg/dL Calculated Osmolal ity (285-295) mOsm/k g Lactate (0.5-2.2) mmol/L Calcium (8.5-10.5) mg/dL Total Bilirubin (0.15-1.2) mg/dL AST (0-40) U/L ALT (0-41) U/L Alkaline Phosphata se (40-130) IU/L C-Reactive Protein (0.0-4.9) mg/L Total Protein (6.6-8.7) g/dL Albumin (3.5-5.2) g/dL Globulin (1.3-4.6) g/dL Procalcitonin (0-0.5) ng/mL Urine Color Yellow (Yellow) Urine Appearance Clear (CLEAR) Urine pH 5 (5-7) Ur Specific Gravit y 1.000 L (1.005-1.030) Urine Protein Neg (Negative) Urine Glucose (UA) 4+ H (Normal) Urine Ketones Negative (Negative) Urine Blood Neg (Negative) Urine Nitrate Negative (Negative) Urine Bilirubin Neg (Negative) Urine Urobilinogen Norm (Negative) mg/dL Ur Leukocyte Maureen ase Negative (Negative) Ethyl Alcohol (0-10) mg/dL Discharge Plan Discharge Patient Disposition: Home Clinical Impression: Pharyngitis Qualifiers: Pharyngitis/tonsillitis etiology: unspecified etiology Qualified Code(s): J02.9 - Acute pharyngitis, unspecified Condition: Stable Prescriptions: New amoxicillin 500 mg capsule 500 mg PO Q8H Qty: 30 RF: 0 Zofran 4 mg tablet 4 mg PO Q6H PRN (Reason: nausea and vomiting) Qty: 10 RF: 0 No Action folic acid 1 mg tablet 1 mg PO DAILY RF: 0 acetaminophen 500 mg tablet 500 mg PO Q6H PRN (Reason: Pain) RF: 0 Lantus U-100 Insulin 100 unit/mL solution 100 unit SUBCUT DAILY 30 Days Qty: 10 RF: 1 insulin aspart U-100 [Novolog U-100 Insulin aspart] 100 unit/mL solution 15 unit SUBCUT TID 30 Days Qty: 13.5 RF: 1 quetiapine 300 mg tablet 300 mg PO DAILY Qty: 30 RF: 1 thiamine HCl (vitamin B1) 100 mg tablet 100 mg PO DAILY Qty: 30 RF: 1 gabapentin 300 mg capsule 600 mg PO TID 30 Days Qty: 90 RF: 1 Discharge Orders: Discharge ED (Routine); Ordered 03/14/21 Ordered By: Arnold Maloney Patient Instructions: Pharyngitis (ED), Diabetic Hyperglycemia (ED) Coding Level of Care Code ED Sample Steamer for Chg Fwd Exam Detailed
[2021-03-13 23:49] LABS: Basophils # 0.1 10^3/uL (0.0-0.1); Basophils % 0.7 %; Eosinophils # 0.1 10^3/uL (0.0-0.8); Eosinophils % 0.9 %; Hematocrit 45.8 % (42.0-52.0); Hemoglobin 16.1 g/dL (11.7-16.6); Lymphocytes # 2.9 10^3/uL (0.8-4.8); Mean Corpuscular HGB Conc 35.2 g/dL (30.0-36.0); Mean Corpuscular Hemoglobin 31.7 pg (28.0-34.0); Mean Corpuscular Volume 90.2 fL (80-94); Mean Platelet Volume 10.7 fL (7.4-10.4); Monocytes # 1.1 10^3/uL (0.2-0.9); Monocytes % 8.8 %; Neutrophils % 65.7 %; Nucleated Red Blood Cells % 0 %; Platelet Count 273 10^3/cmm (130-400); Red Blood Count 5.08 10^6/uL (4.1-5.3); Red Cell Distribution Width 11.1 % (12.1-15.1); White Blood Count 12.8 10^3/uL (4.0-10.0)
[2021-03-13 23:56] LABS: Bilirubin Urine Neg (Negative); Blood Urine Neg (Negative); Glucose Urine UA 4+ (Normal); Ketones Urine Negative (Negative); Leukocyte Esterase Urine Negative (Negative); Nitrate Urine Negative (Negative); Protein Urine Neg (Negative); Urine Appearance Clear (CLEAR); Urine Color Yellow (Yellow); Urobilinogen Urine Norm (Negative); pH Urine 5 (5-7)
[2021-03-13 23:59] LABS: Lactate (Lactic Acid level) 1.9 mmol/L (0.5-2.2)
[2021-03-14 00:15] VITALS: BP 154/99; PULSE 96; RESP 16; O2SAT 95
[2021-03-14 00:39] LABS: Alanine Aminotransferase 23 U/L (0-41); Alcohol Level 99 mg/dL (0-10); Alkaline Phosphatase 79 IU/L (40-130); Blood Urea Nitrogen 3 mg/dL (6-20); C Reactive Protein 5.5 mg/L (0.0-4.9); Calcium 9.2 mg/dL (8.5-10.5); Carbon Dioxide 17 mmol/L (22-29); Chloride 90 mmol/L (98-107); Globulin 3.8 g/dL (1.3-4.6); Glucose 398 mg/dL (65-115); Osmolality Calculated 273 mOsm/kg (285-295); Procalcitonin 0.09 ng/mL (0-0.5); Sodium 125 mmol/L (136-145); Total Bilirubin 0.7 mg/dL (0.15-1.2); Total Protein 7.8 g/dL (6.6-8.7)
[2021-03-14 00:40] LABS: Anion Gap 22.3 (5-19); Aspartate Amino Transferase 23 U/L (0-40); Potassium 4.3 mmol/L (3.5-5.1)
[2021-03-14 01:52] VITALS: BP 162/111; PULSE 78; RESP 17; O2SAT 94
[2021-03-14 02:40] LABS: ABG PCO2 34.5 mmHg (35-45); ABG PH Result 7.43 (7.35-7.45); Arterial Blood Gas Hematocrit 50.6 % (42-52); Base Excess ABG -0.6 mmol/L (-2.0-2.0); Blood Gas Allen Test Pos; Blood Gas Sample Site Radial, left; Blood Gas Sample Type Arterial; Oxygen Device NC; PO2 ABG 86.9 mmHg (80.0-100.0)
[2021-03-14 04:00] VITALS: PULSE 71; RESP 17; O2SAT 96
[2021-03-14] MEDS: lidocaine 2% viscous 1.667 ML, diphenhydrAMINE oral liq 4.165 MG, aluminum-mag hydrox-s... MUCOUS MEM (04:34)
[2021-03-14 04:41] VITALS: BP 131/98; PULSE 117; RESP 17; TEMP 36.8; O2SAT 95
--- NOTE | 2021-03-17 11:36 | DCPLANNER ---
visual manager had message to speak with patient about getting established with a primary care physician. visual manager called phone number [phone], unable to speak with patient at this time, a voicemail was left for patient to return outpatient case manager phone call.
[2021-03-18 09:22] LABS: Quest SARS-CoV-2 RNA NOT DETECTED (NOT DETECTED)
== END 2021-03-14 04:45 | disposition home or self-care (01) ==
PROVIDERS: Emergency Provider Emergency Medicine
DX: J02.9 Acute pharyngitis, unspecified (principal); Z79.4 Long term (current) use of insulin; F17.210 Nicotine dependence, cigarettes, uncomplicated; Z20.822 Contact with and (suspected) exposure to COVID-19
CPT/HCPCS: 36600; 70491; 71045; 80053; 80307; 81003; 82803; 83605; 84145; 85025; 86140; 87635; 93005; 96361; 96374; 96375; 99284; J1100; J2270; J2405; J7030; Q9967

== ENCOUNTER → 2022-03-25 08:51 | Outpatient (BNVA) | payer MEDICAID, SELFPAY | PROVIDERS: Visit Provider Internal Medicine | DX: E11.40 Type 2 diabetes mellitus with diabetic neuropathy, unspecified (principal); E78.2 Mixed hyperlipidemia; R74.01 Elevation of levels of liver transaminase levels; Z72.89 Other problems related to lifestyle; Z79.84 Long term (current) use of oral hypoglycemic drugs; F17.200 Nicotine dependence, unspecified, uncomplicated | CPT/HCPCS: 99204 ==

== ENCOUNTER → 2022-04-11 08:24 | Outpatient (BNVA) | payer MEDICAID, SELFPAY | PROVIDERS: Visit Provider Internal Medicine | DX: E11.40 Type 2 diabetes mellitus with diabetic neuropathy, unspecified (principal); F17.200 Nicotine dependence, unspecified, uncomplicated; Z79.84 Long term (current) use of oral hypoglycemic drugs; Z79.4 Long term (current) use of insulin; E78.2 Mixed hyperlipidemia; R74.01 Elevation of levels of liver transaminase levels; Z72.89 Other problems related to lifestyle | CPT/HCPCS: 99214 ==

== ENCOUNTER 2022-07-12 09:55 | Outpatient (CLI) | payer MEDICAID, SELFPAY ==
--- NOTE | 2022-07-12 10:15 | XRR_ITS ---
PROCEDURE INFORMATION: Exam: XR Chest Exam date and time: 07/12/2022 10:16 AM Age: 51 years old Clinical indication: Patient HX: History--cough, chronic bronchitis TECHNIQUE: Imaging protocol: Radiologic exam of the chest. Views: 2 views. COMPARISON: CR XR chest 1V portable [id number] 03/13/2021 10:59 PM FINDINGS: Lungs: Unremarkable. No consolidation. Pleural spaces: Unremarkable. No pleural effusion. No pneumothorax. Heart/Mediastinum: Unremarkable. No cardiomegaly. Bones/joints: Unremarkable. XR/XR chest 2V* [id number] IMPRESSION: No acute findings.
== END 2022-07-12 09:56 | disposition home or self-care (01) ==
LOC: RAD 09:58
PROVIDERS: Visit Provider Nurse Practitioner Family
DX: R05.9 Cough, unspecified (principal)
CPT/HCPCS: 71046

== ENCOUNTER 2023-05-15 21:27 | Emergency (ER) | payer MEDICAID, SELFPAY ==
[2023-05-15 21:29] VITALS: BP 175/99; PULSE 65; RESP 16; TEMP 36.5; O2SAT 100; BMI 30.7
--- NOTE | 2023-05-15 21:29 | ECG_ITS ---
[facility] Test Date: 2023-05-15 Pat Name: Huan Kauffman Department: Room: Gender: Male Manager Financial Planning: : 1970 Requested By: Michael Vasques Order Number: [id number] Lucie MD: Sumeet Lee M.D. Measurements Intervals [place] Rate: 67 P: 79 [place]: 194 QRS: 62 QRSD: 95 T: 59 QT: 414 QTc: 440 Interpretive Statements SINUS RHYTHM SEPTAL MYOCARDIAL INFARCTION , OF INDETERMINATE AGE [40+ ms Q WAVE IN V1/V2] Compared to ECG 03/13/2021 23:51:29 Myocardial infarct finding now present Electronically Signed On 05-16-2023 12:05:46 CDT by Sumeet Lee M.D. [id number]
[2023-05-15 22:05] LABS: Amphetamines Screen Urine Negative (Negative); Barbiturates Screen Urine Negative (Negative); Benzodiazepines Screen Urine Negative (Negative); Cocaine Screen Urine Negative (Negative); Opiate Screen Urine Negative (Negative); PCP Screen Urine Negative (Negative); THC Screen Urine Negative (Negative)
--- NOTE | 2023-05-15 22:14 | ED_ITS ---
HPI - Dizziness General: Chief Complaint: Dizziness Stated Complaint: hypoglycemia Time Seen by Provider: 05/15/23 21:29 History of Present Illness: HPI Narrative: Patient presents to the ER by EMS with due to concerns of his kidney function. Patient felt dizzy at home and has been an alcoholic for many years which is why he is worried about his kidneys. Patient recently stopped drinking approximately 3 days ago. Patient said he drank 324 ounce beers a day along with a half of a half a gallon of carito. Patient is visibly jaundiced. Patient's belly is distended. Patient's sclera is jaundiced. Review of Systems General: Reports: 10 or more systems reviewed and unremarkable except in HPI and below PFSH ED PFSH: Medical History Alcohol abuse Anxiety Bipolar 1 disorder History of diabetes mellitus, type II Neuropathy Surgical History S/P BKA (below knee amputation) Family History Father Cancer Mother Cancer Social History Smoking and tobacco status: current every day smoker Quit status (tobacco): not considering quitting Second hand smoke exposure: No Smoking risk assessment/counseling performed?: Yes Alcohol intake: current Desire information about alcohol rehabilitation?: No Counseling given: No Substance/Drug Use: former Desire information about substance/drug rehabilitation?: No Counseling given: No Adopted: No Caregiver/support person: No Lives independently: Yes Household members: none Housing: Apartment Marital status: / Number of children: 1 Highest education level completed: 9th Grade service: No Current occupational status: disabled Physical Exam Const: COMMON NORMALS: no acute distress, average body habitus, patient oriented x3, no limitations, healthy appearing, alert and well nourished HENMT: COMMON NORMALS: normocephalic, atraumatic, hearing grossly normal bilaterally, Normal external nose present and moist oral mucous membranes HEAD & SCALP: normocephalic and atraumatic NOSE: Normal external nose present Eye: COMMON NORMALS: Equal, round and reactive pupils present, EOMs intact bilaterally and negative for no scleral icterus (Jaundice) PUPIL: Yes Equal, round and reactive pupils present Neck/C-Spine: COMMON NORMALS: full ROM, no lymphadenopathy, supple, no meningeal signs, no JVD and Thyroid normal THYROID: Thyroid normal Lymph: LYMPHATIC: no lymphadenopathy noted Chest: COMMONS NORMALS: normal inspection of the chest and normal palpation of entire chest wall Resp: COMMON NORMALS: normal respiratory effort, No retractions, No use of accessory muscles and clear to auscultation bilaterally AUSCULTATION: clear to auscultation bilaterally Cardio: COMMON NORMALS: no JVD, regular rate, regular rhythm, S1 normal heart sound present, S2 normal heart sound present, No gallops present (Cardio), No clicks present (Cardio), No murmurs present (Cardio) and No rub (Cardio) RATE: regular rate RHYTHM: regular rhythm HEART SOUNDS: S1 normal heart sound present and S2 normal heart sound present GI: COMMON NORMALS: negative for non-tender (Tender to palpate throughout positive hepatomegaly distended) : COMMON NORMALS: Yes no CVA tenderness BLADDER/KIDNEY EXAM: Yes no CVA tenderness Back/Pelvis: COMMON NORMALS: no CVA tenderness Neuro: COMMON NORMALS: patient oriented x3 SENSORIUM/ORIENTATION: Yes alert MENINGEAL SIGNS: Yes no meningeal signs Course Vital Signs: Vital signs: Vital Signs Temperature 97.7 F 05/15/23 21:29 Pulse Rate 96 05/16/23 00:37 Respiratory Rate 17 05/16/23 00:37 Blood Pressure 147/35 05/16/23 00:37 Pulse Oximetry 96 05/16/23 00:37 Oxygen Delivery Me thod Room Air 05/16/23 00:37 MDM - Dizziness Medical Decision Making Patient presents to the ER because he wanted his kidneys checked and he felt dizzy. Patient is a self-admitted alcoholic. Patient had lab work done at the ER which revealed a white count of 17,000 sodium of 127 BUN/creatinine of 7 and 0.3 showed a total bilirubin of 12.1 and AST of 205 ALT of 55 and an alkaline phosphatase of 421. Ammonia of 68 a C-reactive protein of 40.3 urine that possibly was showed signs of a mild urinary tract infection. Patient is CT with contrast of his chest abdomen pelvis which was negative for PE but did show prominent fluid in the small bowel suggesting of enteritis, right nonobstructing kidney stone, perinephric edema. All these findings was discussed in detail with the patient who was very happy that he had not hurt his kidneys. Patient w ill be given Rocephin IV here as well as discharged home on Augmentin for potential urinary tract infection. Patient should follow-up with his PCP for further evaluation and testing of his elevated liver enzymes patient should continue to not drink. Differential Diagnosis Unlikely adverse reaction to drug, benign paroxysmal positional vertigo, orthostatic hypotension, vertebral basilar insufficiency, cerebrovascular accident, acute vestibular neuronitis or transient cerebral ischemia Medical Records I reviewed the patient's medical records. Lab Data I reviewed the patient's lab results. 05/15/23 23:07 05/15/23 22:07 Radiology Impressions Chest/Abdomen/Pelvis CT 05/15/23 23:58 IMPRESSION: 1. Negative for pulmonary embolus. 2. Ascending thoracic aorta dilated 3.9 cm. 3. Cardiomegaly. 4. Scattered enlarged mediastinal lymph nodes measuring up to 15 mm, nonspecific. 5. Mild emphysematous changes suspected. IMPRESSION: 1. Prominent fluid in the small bowel without dilation suggestive of an enteritis. 2. Right kidney nonobstructing calyceal stone. 3. Perinephric edema bilaterally likely reflecting renal insufficiency, please correlate for pyelonephritis. 4. Hepatic steatosis. Laboratory Results WBC 17.08 10^3/uL (3.29-11.43) H 05/15/23 23:07 RBC 3.21 10^6/uL (3.85-5.65) L 05/15/23 23:07 Hgb 11.30 g/dL (11.27-16.99) 05/15/23 23:07 Hct 32.4 % (37-53) L 05/15/23 23:07 MCV 100.9 fl (82-101) 05/15/23 23:07 MCH 35.2 pg (27-33) H 05/15/23 23:07 MCHC 34.9 g/dL (30-55) 05/15/23 23:07 RDW 16.7 % (12.1-15.1) H 05/15/23 23:07 Plt Count 228 10^3/cmm (157-399) 05/15/23 23:07 MPV 10.4 fL (7.4-10.4) 05/15/23 23:07 Neut % (Auto) 74.6 % 05/15/23 23:07 Lymph % (Auto) 15.1 % 05/15/23 23:07 [place] % (Auto) 5.9 % 05/15/23 23:07 Eos % (Auto) 1.2 % 05/15/23 23:07 Baso % (Auto) 0.9 % 05/15/23 23:07 Neut # (Auto) 12.76 10^3/uL (1.8-7.7) H 05/15/23 23:07 Lymph # (Auto) 2.6 10^3/uL (0.8-4.8) 05/15/23 23:07 [place] # (Auto) 1.0 10^3/uL (0.2-0.9) H 05/15/23 23:07 Eos # (Auto) 0.2 10^3/uL (0.0-0.8) 05/15/23 23:07 Baso # (Auto) 0.2 10^3/uL (0.0-0.1) H 05/15/23 23:07 Nucleated RBC % (auto) 0.1 % 05/15/23 23:07 Nucleated RBCs # 0.0 /100WBC 05/15/23 23:07 Sodium 127 mmol/L (136-145) L 05/15/23 22:07 Potassium 3.5 mmol/L (3.5-5.1) 05/15/23 22:07 Chloride 91 mmol/L (98-107) L 05/15/23 22:07 Carbon Dioxide 27 mmol/L (22-29) 05/15/23 22:07 Anion Gap 12.5 (5-19) 05/15/23 22:07 BUN 7 mg/dL (6-20) 05/15/23 22:07 Creatinine 0.3 mg/dL (0.7-1.2) L 05/15/23 22:07 GFR Calculation 313.6 mL/min (90-130) H 05/15/23 22:07 Glucose 114 mg/dL (65-115) 05/15/23 22:07 Calculated Osmolality 263 mOsm/kg (285-295) L 05/15/23 22:07 Lactic Acid 1.8 mmol/L (0.5-2.2) 05/15/23 22:07 Calcium 8.1 mg/dL (8.5-10.5) L 05/15/23 22:07 Total Bilirubin 12.1 mg/dL (0.15-1.2) H* 05/15/23 22:07 AST 205 U/L (0-40) H 05/15/23 22:07 ALT 55 U/L (0-41) H 05/15/23 22:07 Alkaline Phosphatase 421 U/L (40-130) H 05/15/23 22:07 Ammonia 68 umol/L (16-60) H 05/15/23 22:07 C-Reactive Protein 40.3 mg/L (0.0-4.9) H 05/15/23 22:07 Total Protein 7.4 g/dL (6.6-8.7) 05/15/23 22:07 Albumin 2.5 g/dL (3.5-5.2) L 05/15/23 22:07 Globulin 4.9 g/dL (1.3-4.6) H 05/15/23 22:07 Procalcitonin 0.62 ng/mL (0-0.5) H 05/15/23 22:07 Urine Color Masha (Yellow) 05/15/23 21:47 Urine Appearance Clear (CLEAR) 05/15/23 21:47 Urine pH 8 (5-7) H 05/15/23 21:47 Ur Specific [place] 1.010 (1.005-1.030) 05/15/23 21:47 Urine Protein Neg (Negative) 05/15/23 21:47 Urine Glucose (UA) Norm (Normal) 05/15/23 21:47 Urine Ketones Negative (Negative) 05/15/23 21:47 Urine Blood Neg (Negative) 05/15/23 21:47 Urine Nitrate Negative (Negative) 05/15/23 21:47 Urine Bilirubin 2+ (Negative) H 05/15/23 21:47 Prot Sulfosalicylic Acd Negative (Negative) 05/15/23 21:47 Urine Urobilinogen 12 mg/dL (Negative) H 05/15/23 21:47 Ur Leukocyte Esterase Trace (Negative) H 05/15/23 21:47 Urine RBC None /hpf (0-2) 05/15/23 21:47 Urine WBC 0-4 /hpf (0-5) H 05/15/23 21:47 Ur Squamous Epith Cells 0-4 /hpf (0-5) H 05/15/23 21:47 Amorphous Sediment Not Reportable 05/15/23 21:47 Urine Bacteria 1+ /hpf (NONE) H 05/15/23 21:47 Urine Mucus 2+ /hpf 05/15/23 21:47 Urine Opiates Screen Negative ng/mL (Negative) 05/15/23 21:47 Ur Barbiturates Screen Negative ng/mL (Negative) 05/15/23 21:47 Ur Phencyclidine Scrn Negative ng/mL (Negative) 05/15/23 21:47 Ur Amphetamines Screen Negative ng/mL (Negative) 05/15/23 21:47 U Benzodiazepines Scrn Negative ng/mL (Negative) 05/15/23 21:47 Urine Cocaine Screen Negative ng/mL (Negative) 05/15/23 21:47 U Marijuana (THC) Screen Negative ng/mL (Negative) 05/15/23 21:47 Ethyl Alcohol < 10 mg/dL (0-10) 05/15/23 22:07 EKG Data EKG 1: I personally reviewed and interpreted this EKG as follows: EKG interpretation date: 05/15/23 EKG interpretation time: 21:29 Prior EKG tracings: not available for review Interpretation: EKG showed ventricular rate 67 bpm, MS interval 194, QRS duration 95, QTc of 430, sinus rhythm, Q waves in V1 V2, no ST-T wave changes Discharge Plan Discharge Patient Disposition: Home Clinical Impression: Transaminitis, Alcohol abuse, Chronic hyponatremia, Jaundice Urinary tract infection Qualifiers: Urinary tract infection type: acute cystitis Hematuria presence: without hematuria Qualified Code(s): N30.00 - Acute cystitis without hematuria Condition: Stable Prescriptions: New amoxicillin-pot clavulanate 875-125 mg tablet 1 tab PO BID Qty: 20 0RF No Action gabapentin 300 mg capsule 600 mg PO TID Rx Instructions: Takes one in morning, two at lunch, and two at bed glimepiride 4 mg tablet 4 mg PO DAILY Januvia 100 mg tablet 100 mg PO DAILY oxybutynin chloride 5 mg tablet 5 mg PO TID hydroxyzine HCl 10 mg tablet 10 mg PO TID PRN (DME) FreeStyle Thea 2 [place] Misc See Rx Instructions .Route Qty: 1 0RF Rx Instructions: Check BS 4-6 times a day. (DME) FreeStyle Thea 2 Sensor Kit See Rx Instructions .Route Qty: 6 3RF Rx Instructions: Change every 14 days. (DME) Dexcom G6 Sensor Device See Rx Instructions .Route Qty: 9 3RF Rx Instructions: Change every 10 days. (DME) Dexcom G6 Investigator Utility Bill Complaints Misc See Rx Instructions .Route Qty: 1 0RF Rx Instructions: Check BS 4-6 times a day. (DME) Dexcom G6 Transmitter Device See Rx Instructions .Route Qty: 3 3RF Rx Instructions: Change every 90 days. Humulin R U-500 (Conc) Kwikpen 500 unit/mL (3 mL) insulin pen 30 unit SUBCUT DAILY 90 Days Qty: 6 0RF (DME) pen needle, diabetic [Comfort EZ Pen [place]] 32 gauge x 1/4 needle See Rx Instructions .Route Qty: 100 3RF Rx Instructions: As directed Discharge Orders: Discharge ED (Routine); Ordered 05/16/23 Ordered By: Michael Vasques Patient Instructions: Abuse of Alcohol (DC), Jaundice (ED), Urinary Tract Infection - Men Activity Restrictions/Additional Instructions: Please take all your antibiotics as prescribed. Please follow-up with your family practice physician in the next 7 days or sooner. You need further follow-up for your elevated liver enzymes this may mean referral and/or more testing. Please continue to use abstain from alcohol. Coding Level of Care Code ED Air Control Electronics Operator for Sriram Thompson
[2023-05-15 22:20] LABS: Bilirubin Urine 2+ (Negative); Blood Urine Neg (Negative); Glucose Urine UA Norm (Normal); Ketones Urine Negative (Negative); Nitrate Urine Negative (Negative); Protein Urine Neg (Negative); Urine Appearance Clear (CLEAR); Urine Color Amber (Yellow); Urobilinogen Urine 12 mg/dL (Negative); pH Urine 8 (5-7)
[2023-05-15 22:21] LABS: Add Urine Culture? No; Add Urine Microscopic? YES; Bacteria Urine 1+ /hpf; Leukocyte Esterase Urine Trace (Negative); Mucus Urine 2+ /hpf; Squamous Epithelial Cell Urine 0-4 /hpf (0-5); Sulfosalicylic Acid Urine Negative (Negative); WBC Urine 0-4 /hpf (0-5)
[2023-05-15 22:26] VITALS: BP 175/99; PULSE 77; RESP 18; O2SAT 100
[2023-05-15 23:16] LABS: Basophils # 0.2 10^3/uL (0.0-0.1); Basophils % 0.9 %; Eosinophils # 0.2 10^3/uL (0.0-0.8); Eosinophils % 1.2 %; Hematocrit 32.4 % (37-53); Lymphocytes # 2.6 10^3/uL (0.8-4.8); Lymphocytes % 15.1 %; Mean Corpuscular HGB Conc 34.9 g/dL (30-55); Mean Corpuscular Hemoglobin 35.2 pg (27-33); Mean Corpuscular Volume 100.9 fl (82-101); Mean Platelet Volume 10.4 fL (7.4-10.4); Monocytes % 5.9 %; Neutrophils # 12.76 10^3/uL (1.8-7.7); Neutrophils % 74.6 %; Nucleated Red Blood Cells % 0.1 %; Platelet Count 228 10^3/cmm (157-399); Red Blood Count 3.21 10^6/uL (3.85-5.65); Red Cell Distribution Width 16.7 % (12.1-15.1); White Blood Count 17.08 10^3/uL (3.29-11.43)
[2023-05-15 23:25] VITALS: BP 175/99; PULSE 64; RESP 22; O2SAT 94
[2023-05-15 23:36] LABS: Ammonia 68 umol/L (16-60); Lactic Sepsis W/Reflex 1.8 mmol/L (0.5-2.2)
[2023-05-15 23:40] LABS: Alanine Aminotransferase 55 U/L (0-41); Albumin Level 2.5 g/dL (3.5-5.2); Alkaline Phosphatase 421 U/L (40-130); Anion Gap 12.5 (5-19); Aspartate Amino Transferase 205 U/L (0-40); Blood Urea Nitrogen 7 mg/dL (6-20); C Reactive Protein 40.3 mg/L (0.0-4.9); Calcium 8.1 mg/dL (8.5-10.5); Carbon Dioxide 27 mmol/L (22-29); Chloride 91 mmol/L (98-107); Globulin 4.9 g/dL (1.3-4.6); Glomerular Filtration Rate 313.6 mL/min (90-130); Glucose 114 mg/dL (65-115); Osmolality Calculated 263 mOsm/kg (285-295); Potassium 3.5 mmol/L (3.5-5.1); Sodium 127 mmol/L (136-145); Total Protein 7.4 g/dL (6.6-8.7)
[2023-05-15 23:47] LABS: Procalcitonin 0.62 ng/mL (0-0.5)
[2023-05-15 23:49] LABS: Alcohol Level < 10 mg/dL (0-10)
[2023-05-15 23:50] LABS: Total Bilirubin 12.1 mg/dL (0.15-1.2)
--- NOTE | 2023-05-15 23:58 | CTR_ITS ---
PROCEDURE INFORMATION: Exam: CT Chest With Contrast; Diagnostic Exam date and time: 05/16/2023 12:11 AM Age: 52 years old Clinical indication: Abnormal findings; Abnormal lab test; Elevated wbc; Other: N/a; Patient HX: Wbc of 17k. Bili of 12.1. Bacteriuria. Visible jaundice. ; Additional info: Ascites, jaundice, HTN, elevated lfts and bilirubin, TECHNIQUE: Imaging protocol: Diagnostic computed tomography of the chest with contrast. Radiation optimization: All CT scans at this facility use at least one of these dose optimization techniques: automated exposure control; mA and/or kV adjustment per patient size (includes targeted exams where dose is matched to clinical indication); or iterative reconstruction. Contrast material: OMNI 350; Contrast volume: 100 ml; Contrast route: INTRAVENOUS (IV); REPORTING DATA: Count of CT and Cardiac NM exams in prior 12 months: This patient has received 0 known CTs and 0 known cardiac nuclear medicine studies in the 12 months prior to the current study. COMPARISON: CR XR chest 2V* [id number] 07/12/2022 10:16 AM RADIATION DOSE METRICS: Total DLP (mGy-cm): 1104.81 FINDINGS: Lungs: Mild emphysematous changes suspected. Pleural spaces: Unremarkable. No pneumothorax. No pleural effusion. Heart: Cardiomegaly. Lymph nodes: Scattered enlarged mediastinal lymph nodes measuring up to 15 mm, nonspecific. Vasculature: Ascending thoracic aorta dilated 3.9 cm. Bones/joints: Unremarkable. No acute fracture. Soft tissues: Unremarkable. COMMENTS: In the absence of a history or active diagnosis of lung cancer, it is recommended that this patient with emphysema be evaluated for enrollment in a low dose CT lung cancer screening program. PROCEDURE INFORMATION: Exam: CT Abdomen And Pelvis With Contrast Exam date and time: 05/16/2023 12:11 AM Age: 52 years old Clinical indication: Abnormal findings; Abnormal lab test; Elevated wbc; Other: N/a; Patient HX: Wbc of 17k. Bili of 12.1. Bacteriuria. Visible jaundice. ; Additional info: Ascites, jaundice, HTN, elevated lfts and bilirubin, TECHNIQUE: Imaging protocol: Computed tomography of the abdomen and pelvis with contrast. Radiation optimization: All CT scans at this facility use at least one of these dose optimization techniques: automated exposure control; mA and/or kV adjustment per patient size (includes targeted exams where dose is matched to clinical indication); or iterative reconstruction. Contrast material: OMNI 350; Contrast volume: 100 ml; Contrast route: INTRAVENOUS (IV); REPORTING DATA: Count of CT and Cardiac NM exams in prior 12 months: This patient has received 0 known CTs and 0 known cardiac nuclear medicine studies in the 12 months prior to the current study. COMPARISON: CR XR chest 2V* [id number] 07/12/2022 10:16 AM RADIATION DOSE METRICS: Total DLP (mGy-cm): 1104.81 FINDINGS: Liver: Hepatic steatosis. Gallbladder and bile ducts: Normal. No calcified stones. No ductal dilation. Pancreas: Normal. No ductal dilation. Spleen: Normal. No splenomegaly. Adrenal glands: Normal. No mass. Kidneys and ureters: Right kidney nonobstructing calyceal stone. Perinephric edema bilaterally likely reflecting renal insufficiency, please correlate for pyelonephritis. Stomach and bowel: Prominent fluid in the small bowel without dilation suggestive of an enteritis. Appendix: No evidence of appendicitis. Intraperitoneal space: Unremarkable. No free air. No significant fluid collection. Vasculature: Unremarkable. No abdominal aortic aneurysm. Lymph nodes: Unremarkable. No enlarged lymph nodes. Urinary bladder: Unremarkable as visualized. Reproductive: Unremarkable as visualized. Bones/joints: Unremarkable. No acute fracture. Soft tissues: Unremarkable. CT/CT chest abdpel w/*[id number] IMPRESSION: 1. Negative for pulmonary embolus. 2. Ascending thoracic aorta dilated 3.9 cm. 3. Cardiomegaly. 4. Scattered enlarged mediastinal lymph nodes measuring up to 15 mm, nonspecific. 5. Mild emphysematous changes suspected. IMPRESSION: 1. Prominent fluid in the small bowel without dilation suggestive of an enteritis. 2. Right kidney nonobstructing calyceal stone. 3. Perinephric edema bilaterally likely reflecting renal insufficiency, please correlate for pyelonephritis. 4. Hepatic steatosis.
[2023-05-16 00:01] VITALS: BP 175/99; PULSE 70; RESP 20; O2SAT 95
[2023-05-16] MEDS: iohexol 350 mg/mL 500 mL Btl (per mL) IV (00:13)
[2023-05-16 00:37] VITALS: BP 147/35; PULSE 96; RESP 17; O2SAT 96
[2023-05-16] MEDS: cefTRIAXone 1,000 MG in sodium chloride 0.9% (plus) 50 ML 100 MG IV (01:02)
[2023-05-16 01:09] VITALS: BP 147/35; PULSE 86; RESP 18; O2SAT 97
[2023-05-16 01:33] VITALS: BP 99/47; PULSE 85; RESP 18; O2SAT 96
== END 2023-05-16 03:05 | disposition home or self-care (01) ==
PROVIDERS: Emergency Provider Emergency Medicine
DX: R74.01 Elevation of levels of liver transaminase levels (principal); F10.10 Alcohol abuse, uncomplicated; E87.1 Hypo-osmolality and hyponatremia; R17 Unspecified jaundice; N30.00 Acute cystitis without hematuria; Z79.84 Long term (current) use of oral hypoglycemic drugs; Z79.4 Long term (current) use of insulin; E11.9 Type 2 diabetes mellitus without complications; Z89.519 Acquired absence of unspecified leg below knee; F17.210 Nicotine dependence, cigarettes, uncomplicated
CPT/HCPCS: 36415; 71260; 74177; 80053; 80306; 80307; 81001; 82140; 83605; 84145; 85025; 86140; 93005; 96365; 96366; 99285; J0696; Q9967